=== PATIENT | male | born 1995 ===

== ENCOUNTER → 2022-01-26 09:45 | Outpatient (BNVA) | payer MEDICARE, SELFPAY | PROVIDERS: PCP Internal Medicine; Visit Provider Dietitian, Registered | DX: E66.01 Morbid (severe) obesity due to excess calories (principal); Z68.41 Body mass index [BMI] 40.0-44.9, adult | CPT/HCPCS: 97802 ==

== ENCOUNTER → 2022-04-14 09:13 | Outpatient (BNVA) | payer MEDICARE, SELFPAY | PROVIDERS: PCP Internal Medicine; Visit Provider Dietitian, Registered | DX: E66.01 Morbid (severe) obesity due to excess calories (principal); Z68.39 Body mass index [BMI] 39.0-39.9, adult; Z71.3 Dietary counseling and surveillance | CPT/HCPCS: 97803 ==

== ENCOUNTER → 2022-08-02 12:48 | Outpatient (BNVA) | payer MEDICARE, SELFPAY | PROVIDERS: PCP Internal Medicine; Visit Provider Dietitian, Registered | DX: E66.01 Morbid (severe) obesity due to excess calories (principal); Z68.41 Body mass index [BMI] 40.0-44.9, adult | CPT/HCPCS: 97803 ==

== ENCOUNTER 2024-05-20 11:56 | Outpatient (AMB) | payer OTHER, SELFPAY ==
--- NOTE | 2024-05-20 12:08 | A.OFFPC_ITS ---
Vital Signs 05/20/24 12:32 Height 5 ft 4 in Weight 174 lb 6 oz BMI 29.9 BP 118/78 Blood Pressure Location Lt brachial Position Sitting Respiration 17 Pulse 88 Pulse Source Pulse Oximeter Temp 98.2 F Temp Source Oral Pulse Oximetry (%) 98 Oxygen Delivery Method Room Air Intake Visit Reasons: Est Care/requesting PE/Provider out 03/28/24 Intake Note: Pt is here today as a new pt establishing care. Allergies ursodiol Adverse Reaction (Severe, Uncoded 05/20/24 13:02) Confusion Medication List - Last Reconciled 05/20/24 by Sheridan Patel MD acetaminophen (Pain Relief Extra Strength (acetaminophen)) mg PO escitalopram oxalate 10 mg PO DAILY fluticasone propionate 110 mcg/actuation inhalation lamotrigine 100 mg PO BID lamotrigine 200 mg PO BID loratadine 10 mg PO DAILY pantoprazole 40 mg PO DAILY topiramate 50 mg PO DAILY topiramate 100 mg PO BID Tobacco use date assessed: 05/20/24 Dental Screening Dental Screen Date: 05/20/24 Did you have a dental visit in the last 12 months?: No Did you have a dental problem in the last 6 months where you did not have access to dental care?: No Was dental information given to patient?: Patient has dentist HPI Est Care/requesting PE/Provider out 03/28/24 HPI Details 29-year-old male with history of morbid obesity, status post gastric sleeve surgery, has depression anxiety, seizure disorder currently on topiramate and lamotrigine, and environmental and seasonal allergies, here today for his physical exam. Patient states that he has been having some alteration in his taste ever since he had his sleeve gastrectomy done . Otherwise has been feeling well, with no other complaints. He is currently being followed by Román chinchilla for his depression and anxiety, and sees Dr. Dinesh Farrell for his seizure disorder. [facility] Medical History (Updated 05/20/24 @ 13:07 by Sheridan Patel MD) Dysgeusia Environmental and seasonal allergies Depression with anxiety Seizure disorder Mental health disorder Substance abuse Surgical History (Updated 05/20/24 @ 13:08 by Sheridan Patel MD) H/O gastric sleeve Family History Mother Mental health disorder Father Mental health disorder Social History Housing: House Patient Tobacco Use Status: Never used Tobacco e-Cigarette/Vaping Use: Never Used service: No Current occupational status: unemployed Cognitive needs: No Hearing needs: No Vision needs: Yes Questionnaire PHQ-9 Over the last 2 weeks, how often have you been bothered by any of the following problems? 1. Little interest or pleasure in doing things: more than half the days 2. Feeling down, depressed, or hopeless: not at all 3. Trouble falling or staying asleep, or sleeping too much: more than half the days 4. Feeling tired or having little energy: more than half the days 5. Poor appetite or overeating: more than half the days 6. Feeling bad about yourself - or that you are a failure or have let yourself or your family down: not at all 7. Trouble concentrating on things, such as reading the newspaper or watching television: several days 8. Moving or speaking so slowly that other people could have noticed. Or the opposite - being so fidgety or restless that you have been moving around a lot more than usual: not at all 9. Thoughts that you would be better off or of hurting yourself in some way: not at all Total score: 9 Depression Screening Interpretation: Positive (sees Román Bucio in [place]) Depression Screening Follow-up: Existing condition, In treatment and Community Mental Health Worker F/U Depression Screening Done: Yes 76438 - PHQ-9 Billing: Yes Source: Developed by Drs. Lester Cullen, Julianne Tarango, Lázaro Benedict and colleagues, with an educational delonte from [employer]. Thrive Questionnaire Date Thrive assessed: 05/20/24 I am a: Patient What is your living situation today?: I have a steady place to live Within the past 12 months, did the food you bought not last and you didn't have the money to get more?: Sometimes True Within the past 12 months, did you worry whether your food would run out before you got money to buy more?: Sometimes True Do you have trouble paying for medicines?: I choose not to answer this question Do you have trouble getting transportation to medical appointments?: I choose not to answer this question Do you have trouble paying your heating and electricity bill?: No Do you have trouble taking care of your child, family member or friend?: I choose not to answer this question Do you have trouble with day-to-day activities such as bathing, preparing meals, shopping, managing finances, etc.?: I choose not to answer this question Are you currently unemployed and looking for a job?: I choose not to answer this question Are you interested in more education?: I choose not to answer this question Please select the resources that you would like help with: None Currently or been in a relationship where the following occur: I choose not to answer THRIVE Score: 2 AUDIT C Alcohol Use Questionnaire (AUDIT-C) 1. How often do you have a drink containing alcohol?: Never 3. How often do you have six or more drinks on one occasion?: Never Total Score: 0 Score Reviewed/Action Taken: Yes MARIA ISABEL-7 AMB Questionnaire MARIA ISABEL-7 Date MARIA ISABEL - 7 assessed: 05/20/24 Feeling nervous, anxious, or on edge: 1 = Several days Not being able to stop or control worryin = Several days Worrying too much about different things: 1 = Several days Trouble relaxin = More than half the days Being so restless that it is hard to sit still: 1 = Several days Becoming easily annoyed or irritable: 3 = Nearly every day Feeling afraid as if something awful might happen: 2 = More than half the days Total MARIA ISABEL-7 score (0-4 normal; 5-9 mild; 10-14 moderate; 15-21 severe): 11 Source: Developed by Drs. Lester Cullen, Julianne Tarango, Lázaro Benedict and colleagues, with an educational delonte from [employer]. MARIA ISABEL-7 Assessment Billing MARIA ISABEL-7 Assessment Tool: MARIA ISABEL-7 Assessment [id number] Review of Systems Const Denies body aches, Denies fatigue, Denies fever(s) and Denies headache(s) Eyes Details: sees eye doctor at [facility] Denies change in vision ENT Details: gets dental prophylaxis every 6 months Denies dizziness, Denies headache(s), Denies nasal congestion, Denies nasal discharge and Denies sore throat Card Denies chest pain, Denies lightheadedness, Denies palpitations and Denies dyspnea Resp Denies chest congestion, Denies cough, Denies dyspnea and Denies wheezing GI Denies abdominal pain, Denies change in bowel habits and Denies heartburn Denies hematuria, Denies difficulty urinating, Denies dysuria, Denies urinary frequency and Denies urinary urgency Musc Reports no additional complaints Skin/Breast Denies lesions and Denies rash Neuro Denies dizziness and Denies headache(s) Psych Reports as per HPI Endo Denies fatigue, Denies polydipsia, Denies polyuria and Denies palpitations Chance/Lymph Denies easy bruising Aller/Immun Denies seasonal rhinorrhea and Denies wheezing Physical exam (Primary Care) Vital Signs: Last Vital Signs Temp 98.2 F 05/20/24 12:32 Pulse 88 05/20/24 12:32 Resp 17 05/20/24 12:32 BP 118/78 05/20/24 12:32 Pulse Ox 98 05/20/24 12:32 Oxygen Delivery Method Room Air 05/20/24 12:32 BMI result Body Mass Index 29.9 Tobacco/Smoking Status: Tobacco use Status Tobacco use date assessed 05/20/24 05/20/24 12:10 Patient Tobacco Use Status Never used Tobacco 05/20/24 12:42 e-Cigarette/Vaping Use Never Used 05/20/24 12:42 PHQ-9: PHQ-9 Score PHQ-9: Total score 9 05/20/24 12:51 Depression Screening Interpretation: Positive (alfredo Bucio in [place]) Depression Screening Follow-up: Existing condition, In treatment and Community Mental Health Worker F/U Thrive Assessment: Date of Thrive Assessment Date Thrive assessed 05/20/24 05/20/24 12:42 Currently or been in a relationship where the following occur: I choose not to answer Const General: no acute distress and alert Nutritional Appearance: overweight Orientation/consciousness: patient oriented x3 HENMT Head: Yes normocephalic Ears: external ears normal, TM's normal bilaterally and EAC's normal General nose exam: Normal external nose present and No nasal discharge present Face and sinus: Yes face symmetric Mouth: Normal oral and palatal mucosa present, tongue normal, oropharynx normal and moist mucous membranes Eyes General: appearance normal, both eyes and all related structures Eyelids: Yes eyelids normal Conjunctivae: conjunctivae normal Sclerae: sclerae normal Pupils: Equal, round and reactive pupils present EOM: EOMs intact bilaterally Neck Neck: Yes full ROM, Yes no lymphadenopathy and Yes supple Thyroid: Thyroid normal Chest Chest palpation & inspection: normal inspection of the chest Resp Effort & Inspection: normal respiratory effort and able to speak in complete sentences Auscultation: clear to auscultation bilaterally Cardio Rate: regular rate Rhythm: regular rhythm Heart sounds: S1 normal heart sound present and S2 normal heart sound present GI Palpation (GI): Soft to palpation, nontender, no guarding and no masses Auscultation: normal bowel sounds General: Yes no CVA tenderness Male General Exam: No hernia Scrotum: no hydroceles and no inguinal hernias Testes: no testicular mass Back/Spine/Pelvis Back: no CVA tenderness and No back tenderness Skin General skin exam: no rashes or lesions noted Neuro General: patient oriented x3, gait normal, moves all extremities, Normal light touch and pain sensation, no focal motor deficits and CN's II-XI intact bilaterally Cranial nerves: Yes Equal, round and reactive pupils present Cognition (Neuro): normal cognition Gait exam (Neuro): Normal gait present Motor exam (neuro): 5/5 motor strength present throughout Extrem General: Yes normal to inspection, Yes full ROM, Yes no joint enlargement, Yes no pedal edema and Yes normal gait Psych Appearance: grossly normal and well kempt Mental Status: mental status grossly normal Speech and movement: Normal speech and movement present Affect: normal affect Attitude: cooperative Thought process: Normal thought process present Thought content: Normal thought content present Coding Level of Care Code New Pt Prev Care 18-39yr([id number] Diagnoses Seizure disorder G40.909 Depression with anxiety F41.8 Environmental and seasonal allergies J30.89 Dysgeusia R43.2 H/O gastric sleeve Z90.3 Annual visit for general adult medical examination with abnormal findings Z00.01 Additional Codes MARIA ISABEL-7 Assessment Billing - MARIA ISABEL-7 Assessment Tool: MARIA ISABEL-7 Assessment [id number] ([id number]) PHQ-9 - 22262 - PHQ-9 Billing: Yes ([id number]) Assessment & Plan Assessment & Plan (1) Seizure disorder: Comment: dx at age 10 y/o, sees Dr Dinesh Farrell in [place] , on Topiramate and Lmotrigine, last attack >10 years Code(s): G40.909 - Epilepsy, unspecified, not intractable, without status epilepticus Category: Medical Plan: Controlled on lamotrigine and topiramate, followed by Dr. Dinesh Farrell, his neurologist in [place] (2) Depression with anxiety: Comment: alfredo Bucio MD Code(s): F41.8 - Other specified anxiety disorders Category: Medical Plan: Followed by Dr Román Bucio, currently on escitalopram mg daily (3) Environmental and seasonal allergies: Code(s): J30.89 - Other allergic rhinitis Category: Medical Plan: Takes loratadine as needed (4) Dysgeusia: Code(s): R43.2 - Parageusia Category: Medical Plan: Explained to patient that this is a common side effect after sleeve gastrectomy, (5) H/O gastric sleeve: Comment: Dr Gonzalez 12/2023, Code(s): Z90.3 - Acquired absence of stomach [part of] Category: Surgical Plan: Will check vitamin B12, vitamin-D and folic acid level and vitamin B6 (6) Annual visit for general adult medical examination with abnormal findings: Code(s): Z00.01 - Encounter for general adult medical examination with abnormal findings Plan: Will check appropriate labs. Up-to-date with his dental visit every 6 months and regular eye exams, at least every 2 years. Take adequate calcium in diet and vitamin-D 3 at 2000 IU per cap once a day, in addition to weight-bearing exercises to help maintain good muscle tone and weight control. Instructed to do self-testicular exam check for any mass. Advised to get yearly flu vaccine, get his COVID booster and is due for a tetanus booster as well this year, does not want to get 1 at present time Orders: Orders Complete Blood Count Auto Diff 05/20/24 F41.8 - Other specified anxiety disorders, G40.909 - Epilepsy, unspecified, not intractable, without status epilepticus, J30.89 - Other allergic rhinitis, R43.2 - Parageusia, Z00.01 - Encounter for general adult medical examination with abnormal findings, Z90.3 - Acquired absence of stomach [part of] Comprehensive [place]. Panel Fast 05/20/24 F41.8 - Other specified anxiety disorders, G40.909 - Epilepsy, unspecified, not intractable, without status epilepticus, J30.89 - Other allergic rhinitis, R43.2 - Parageusia, Z00.01 - Encounter for general adult medical examination with abnormal findings, Z90.3 - Acquired absence of stomach [part of] Lipid Panel 05/20/24 F41.8 - Other specified anxiety disorders, G40.909 - Epilepsy, unspecified, not intractable, without status epilepticus, J30.89 - Other allergic rhinitis, R43.2 - Parageusia, Z00.01 - Encounter for general adult medical examination with abnormal findings, Z90.3 - Acquired absence of stomach [part of] Vitamin B12 and Folate 05/20/24 F41.8 - Other specified anxiety disorders, G40.909 - Epilepsy, unspecified, not intractable, without status epilepticus, J30.89 - Other allergic rhinitis, R43.2 - Parageusia, Z00.01 - Encounter for general adult medical examination with abnormal findings, Z90.3 - Acquired absence of stomach [part of] Vitamin D 25-OH Total 05/20/24 F41.8 - Other specified anxiety disorders, G40.909 - Epilepsy, unspecified, not intractable, without status epilepticus, J30.89 - Other allergic rhinitis, R43.2 - Parageusia, Z00.01 - Encounter for general adult medical examination with abnormal findings, Z90.3 - Acquired absence of stomach [part of] Vitamin B6 05/20/24 F41.8 - Other specified anxiety disorders, G40.909 - Epilepsy, unspecified, not intractable, without status epilepticus, J30.89 - Other allergic rhinitis, R43.2 - Parageusia, Z00.01 - Encounter for general adult medical examination with abnormal findings, Z90.3 - Acquired absence of stomach [part of] TSH reflex Free T4 05/20/24 F41.8 - Other specified anxiety disorders, G40.909 - Epilepsy, unspecified, not intractable, without status epilepticus, J30.89 - Other allergic rhinitis, R43.2 - Parageusia, Z00.01 - Encounter for general adult medical examination with abnormal findings, Z90.3 - Acquired absence of stomach [part of]
[2024-05-20 12:32] VITALS: BP 118/78; PULSE 88; RESP 17; TEMP 36.8; O2SAT 98; BMI 29.9
--- OUTSIDE RECORDS SUMMARY | 2024-05-20 15:05 | XMS_ITS | Clinical Summary ---
Author Organization 175 [facility] Address [address] [place] [address] Phone Care Team Providers Care Industrial Mechanic Name Role Phone Vikram Rivera MD Primary Care Provider Allergies No known active allergies Medications fluticasone furoate (Arnuity Ellipta) 100 mcg/actuation blister with device inhaler INHALE ONE PUFF BY MOUTH EVERY DAY - RINSE MOUTH WITH WATER AND EXPECTORATE AFTER EACH DOSE TO PREVENT ORAL/ESOPHAGEAL CANDIDIASIS OR FUNGAL INFECTION. (BULK) 08/17/19 24 Active cholecalcifero l (VITAMIN D-3) 50 mcg (2,000 unit) tablet Take 1 Tablet by mouth daily. 11/27/19 24 Active cholecalcifero l (VITAMIN D-3) 1,250 mcg (50,000 unit) capsule TAKE 1 CAPSULE BY MOUTH ONE TIME PER WEEK 09/10/19 24 Active escitalopram (LEXAPRO) 20 mg tablet 01/26/20 23 Active fluticasone HFA (FLOVENT HFA) 110 mcg/actuation inhaler INHALE 2 PUFFS BY MOUTH INTO THE LUNGS TWO TIMES A DAY (BULK) 08/20/19 24 Active hydrOXYzine HCL (ATARAX) 50 mg tablet 01/26/20 23 Active lamoTRIgine (LaMICtal) 200 mg tablet Take 1 tablet by mouth 2 Times Daily. 04/22/19 22 Active lamoTRIgine (LaMICtal XR) 300 mg tablet extended release 24hr 24 hr tablet Take 300 mg by mouth 2 times daily. 10/07/19 21 Active loratadine (CLARITIN) 10 mg tablet TAKE ONE TABLET BY MOUTH EVERY DAY ^1R1 12/17/19 24 Active sertraline (ZOLOFT) 100 mg tablet Take 100 mg by mouth 2 times daily. Active topiramate (TOPAMAX) 100 mg tablet TAKE 1 TABLET EVERY MORNING AND 1.5 TABLET (150MG) EVERY EVENING 02/21/20 19 Active ursodioL (ACTIGALL) 300 mg capsule Take 2 Capsules by mouth daily for 180 days. 12/29/19 24 025 Active inhalat.spacin g dev,large mask (Procare Spacer With Adult Mask) spacer Use with albuterol inhaler 02/20/20 18 Active wheat dextrin 3 gram/3.8 gram powder Take 4 g by mouth daily. 12/29/19 24 Active albuterol HFA (PROAIR HFA ; PROVENTIL HFA ; VENTOLIN HFA) 90 mcg/actuation inhaler INHALE 2 PUFFS BY MOUTH INTO THE LUNGS EVERY 4 HOURS NEEDED FOR COUGH OR WHEEZING (BULK) 8.5 g 1 04/28/19 25 Active albuterol HFA (PROAIR HFA ; PROVENTIL HFA ; VENTOLIN HFA) 90 mcg/actuation inhaler INHALE 2 PUFFS BY MOUTH INTO THE LUNGS EVERY 4 HOURS NEEDED FOR COUGH OR WHEEZING (BULK) 8.5 g 1 02/27/20 24 025 Discontinued Active Problems Problem Noted Date Diagnosed Date Bariatric surgery status 04/15/2024 Class 1 obesity due to exces s calories with serious comorbidity and body mass index (BMI) of 30.0 to 30.9 in adult 04/15/2024 Class 3 severe obesity with body mass index (BMI) of 40.0 to 44.9 in adult 01/01/2024 TIERNEY (obstructive sleep apnea) 09/10/2015 Depression 07/28/2013 Epilepsy 12/24/2012 Overview (01/01/2024): Started age 10, states after his father , seizures started ? Emotional Patient states he is in the process of having the surgery for the seizures to remove part of the brain that causes the seizures . Insomnia 12/24/2012 Migraine 12/24/2012 Vitamin D deficiency 12/24/2012 Encounters Date Type Department Care Team Description 04/28/2024 1:15 PM EST Office Visit Bariatric Surgery - [place] 175 [facility] [address] [place] [address] Nenita Danielle PA Intestinal malabsorption following gastrectomy (Primary Dx); Class 1 obesity due to excess calories with serious comorbidity and body mass index (BMI) of 30.0 to 30.9 in adult; Bariatric surgery status 04/15/2024 3:15 PM EST Office Visit Bariatric Surgery - [place] [address] [phone] Nenita Danielle PA Class 1 obesity due to excess calories with serious comorbidity and body mass index (BMI) of 30.0 to 30.9 in adult (Primary Dx); Bariatric surgery status from Last 3 Months Immunizations Name Administration Dates Next Due Hepatitis B (Hocimhr-H-Ggkia , Recombivax HB-Adult) 19yo and older 10/27/2021 Influenza Quadravalent, MDCK , 0.5ml, preservative free (Flucelvax) 6mo and older 11/23/2022 Influenza trivalent, 0.5mL, preservative free (Fluarix; FluLaval; Fluzone) ages 6mo and older (Afluria) 3 years and older 12/15/2018,05/04/2016 Tdap Tetanus diptheria acell ular pertussis (Boostrix; Adacel) 7yo and older 10/30/2013 Medical History Medical History Date Comments Epilepsy ([facility]/HCC) 12/24/2012 DX:Epilepsy ( [facility]); COMMENT: Started age 10, states after his father , seizures started ? Emotional Major depression 12/24/2012 DX:Major depres bryan Vitamin D deficiency 12/24/2012 DX:Vitamin D deficiency Trouble in sleeping 12/24/2012 DX:Trouble i n sleeping Migraine 12/24/2012 DX:Migraine Family History Medical History Relation Name Comments Other: epilepsy Aunt mother Diabetes Brother asthma Alcohol abuse Father in 30 s, cause unknown Diabetes Mother kidney stones, migraines Other: ca cervical Mother spread to ovaries, not sure Other: ca cervical Mother's side 1 Aunt Prostate cancer Mother's side 2 Uncle Relation Name Status Comments Aunt Brother Father Mother Mother's side 1 Mother's side 2 Social History Tobacco Use Types Packs/Day Years Used Date Smoking Tobacco: Never Smokeless Tobacco: Never Tobacco Cessation:Counseling Given: Not Answered Alcohol Use Standard Drinks/Week Comments Never 0 (1 standard drink = 0.6 oz pur e alcohol) Sex and Gender Information Value Date Recorded Sex Assigned at Not on file Legal Sex Male 3:58 AM EST Gender Identity Not on file Sexual Orientation Not on file Obstetrics History Last Filed Vital Signs Vital Sign Reading Time Taken Comments Blood Pressure 116/70 04/28/2024 1:11 PM EST Pulse 101 04/28/2024 1:11 PM EST Temperature - - Respiratory Rate - - Oxygen Saturation - - Inhaled Oxygen Concentration - - Weight 83.4 kg (183 lb 12.8 oz) 04/28/2024 1:11 PM EST Height 165.1 cm (5' 5 ) 04/28/2024 1:11 PM EST Body Mass Index 30.59 04/28/2024 1:11 PM EST Plan of Treatment Upcoming Encounters Date Type Department Care Team (Late st Contact Info) Description 05/21/2024 9:00 AM EST Telemedicine Bariatric Surgery [facility] [address] [phone] [address] [address] 06/10/2024 11:45 AM EDT Office Visit Bariatric Surgery [facility] [address] [phone] Nenita Danielle PA [address] [address] 06/23/2024 3:45 PM EDT Office Visit Adult Medicine [address] [phone] Vikram Rivera MD [address] [place] [address] 11/19/2024 3:45 PM EDT Office Visit Pulmonolgy - [place] 175 [facility] [address] [place] [address] Bob Ravi MD 175 [facility] [address] [place] [address] Health Maintenance Due Date Last Done Comments Pneumococcal Vaccine: Pediatrics (0 to 5 Years) and At-Risk Patients (6 to 64 Years) (1 of 2 - PCV) 01/10/2012 Hepatitis B Vaccines (2 of 3 - 19+ 3-dose series) 11/24/2021 10/27/2021 Depression Screening 02/25/2022 HIV Screening 02/25/2022 Hepatitis C Screening 02/25/2022 Medicare Annual Wellness Visit 02/25/2022 Social Influencers of Health Screening 02/25/2022 DTaP,Tdap,and Td Vaccines (2 - Td or Tdap) 10/31/2023 10/30/2013 COVID-19 Vaccine ( season) 2023 03/01/2021, 07/31/2020, 07/10/2020 Influenza Vaccine (#1) 2023 , 12/04/2019, 12/15/2018, Additional history exists Cholesterol Screening (Lipid Panel) 11/26/2028 11/27/2023, 11/27/2023 HIB Vaccines Aged Out No longer eligi ble based on patient's age to complete this topic HPV Vaccines Aged Out No longer eligi ble based on patient's age to complete this topic Hepatitis A Vaccines Aged Out No long er eligible based on patient's age to complete this topic IPV Vaccines Aged Out No longer eligi ble based on patient's age to complete this topic MMR Vaccines Aged Out No longer eligi ble based on patient's age to complete this topic Meningococcal ACWY Vaccine Aged Out N o longer eligible based on patient's age to complete this topic Meningococcal B Vacine Aged Out No lo nger eligible based on patient's age to complete this topic RSV Immunization Patients Under 20 months Aged Out No longer eligible based on patient's age to complete this topic Varicella Vaccines Aged Out No longer eligible based on patient's age to complete this topic Procedures Procedure Name Priority Date/Time Associated Diagnosis Comments VITAMIN B1 Routine 04/15/2024 3:42 PM EST Class 1 obesity due to excess calories with serious comorbidity and body mass index (BMI) of 30.0 to 30.9 in adult VITAMIN B12 Routine 04/15/2024 3:42 PM EST Class 1 obesity due to excess calories with serious comorbidity and body mass index (BMI) of 30.0 to 30.9 in adult VITAMIN B6 Routine 04/15/2024 3:42 PM EST Class 1 obesity due to excess calories with serious comorbidity and body mass index (BMI) of 30.0 to 30.9 in adult VITAMIN D 25 HYDROXY Routine 04/15/2024 3:42 PM EST Class 1 obesity due to excess calories with serious comorbidity and body mass index (BMI) of 30.0 to 30.9 in adult ZINC Routine 04/15/2024 3:42 PM EST Class 1 obesity due to excess calories with serious comorbidity and body mass index (BMI) of 30.0 to 30.9 in adult SELENIUM SERUM Routine 04/15/2024 3:42 PM EST Class 1 obesity due to excess calories with serious comorbidity and body mass index (BMI) of 30.0 to 30.9 in adult IRON AND TIBC Routine 04/15/2024 3:42 PM EST Class 1 obesity due to excess calories with serious comorbidity and body mass index (BMI) of 30.0 to 30.9 in adult FOLATE Routine 04/15/2024 3:42 PM EST Class 1 obesity due to excess calories with serious comorbidity and body mass index (BMI) of 30.0 to 30.9 in adult COMPREHENSIVE METABOLIC PANEL Routine 04/15/2024 3:42 PM EST Class 1 obesity due to excess calories with serious comorbidity and body mass index (BMI) of 30.0 to 30.9 in adult LIPID PANEL Routine 11/27/2023 from Last 3 Months or Most Recently Relevant to Health Maintenance Results * Iron and TIBC (04/15/2024 3:42 PM EST) Iron 111 50 - 160 mcg/dL LAB CHEMISTRY METHOD 04/15/2024 7:38 PM EST [facility] TIBC 288 250 - 450 mcg/dL LAB CHEMISTRY METHOD 04/15/2024 7:38 PM EST [facility] Iron Saturation 39 20 - 50 % LAB CHEMISTRY METHOD 04/15/2024 7:38 PM EST [facility] Blood Venous blood specimen / Unknown Venipuncture / Unknown 04/15/2024 3:42 PM EST 04/15/2024 3:42 PM EST us Nenita TIAN LAB BLOOD ORDERABLES Final R esult [facility] [address] [place] [address], [place] [phone] * (ABNORMAL) Zinc (04/15/2024 3:42 PM EST) Zinc 142(H) 60 - 130 ug/dL 04/18/2024 12:14 PM EST [facility] Comment: Elevated results may be due to sample collected in a non-certified trace element-free tube. This test was developed and the performance characteristics determined by [facility]. It has not been cleared or approved by the FDA. The laboratory is regulated under CLIA as qualified to perform high-complexity testing. This test is used for patient testing purposes. It should not be regarded as investigational or for research. Test performed at [facility], [address] , [place], [place] ??[address] ? [phone] Lucille Oliveros MD, PhD - Plumbing Designer Blood Venous blood specimen / Unknown Venipuncture / Unknown 04/15/2024 3:42 PM EST 04/15/2024 3:42 PM EST us Nenita TIAN LAB BLOOD ORDERABLES Final R esult Performing Organization Address [facility]/ZIP Co de Phone Number [facility] [address] [place] [address] * Selenium serum (04/15/2024 3:42 PM EST) [facility] Selenium 125 63 - 160 mcg/L 04/25/2024 4:40 AM EST [facility] Comment: (Note) This test was developed and its analytical performance characteristics have been determined by [facility]. It has not been cleared or approved by the FDA. This assay has been validated pursuant to the CLIA regulations and is used for clinical purposes. [facility] [address] [facility] [address] Ramana Vicente MD, PhD Test Performed at: [facility] [address] [address], [address] [place], [place] ??[phone] ? Rohit Vicente MD, PhD Blood Venous blood specimen / Unknown Venipuncture / Unknown 04/15/2024 3:42 PM EST 04/15/2024 3:42 PM EST Nenita TIAN LAB BLOOD ORDERABLES Final R esult Performing Organization Address [facility] de Phone Number [facility] [address] [place] [address] * Vitamin D 25 hydroxy (04/15/2024 3:42 PM EST) [facility] Vit D, 25-Hydroxy 38.4 30.0 - 80.0 ng/mL LAB CHEMISTRY METHOD 04/15/2024 7:17 PM EST [facility] Blood Venous blood specimen / Unknown Venipuncture / Unknown 04/15/2024 3:42 PM EST 04/15/2024 3:42 PM EST Nenita TIAN LAB BLOOD ORDERABLES Final R esult Performing Organization Address City/[facility]/ZIP Co de Phone Number [facility] [address] [place] [address], * Vitamin B1 (04/15/2024 3:42 PM EST) Vitamin B1 Whole Blood 93 38 - 122 ug/L 04/21/2024 12:25 PM EST [facility] Comment: This test was developed and the performance characteristics determined by [facility]. It has not been cleared or approved by the FDA. The laboratory is regulated under CLIA as qualified to perform high-complexity testing. This test is used for patient testing purposes. It should not be regarded as investigational or for research. Test performed at [facility], [address] [place], [place] ??[address] ? [phone] Lucille Oliveros MD, PhD - Plumbing Designer Blood Venous blood specimen / Unknown Venipuncture / Unknown 04/15/2024 3:42 PM EST 04/15/2024 3:42 PM EST Nenita TIAN LAB BLOOD ORDERABLES Final R esult [facility] [address] [place] [address] * (ABNORMAL) Vitamin B6 (04/15/2024 3:42 PM EST) Vitamin B6 (Pyridoxine) Level 139(H) 5 - 50 ug/L 04/21/2024 12:54 PM EST [facility] Comment: This test was developed and the performance characteristics determined by [facility]. It has not been cleared or approved by the FDA. The laboratory is regulated under CLIA as qualified to perform high-complexity testing. This test is used for patient testing purposes. It should not be regarded as investigational or for research. Test performed at [facility], [address] [place], [place] ??[address] ? [phone] Lucille Oliveros MD, PhD - Plumbing Designer Blood Venous blood specimen / Unknown Venipuncture / Unknown 04/15/2024 3:42 PM EST 04/15/2024 3:42 PM EST us Nenita TIAN LAB BLOOD ORDERABLES Final R esult [place] [address] * Folate (04/15/2024 3:42 PM EST) Pathologist [facility] Folate 15.7 2.8 - 17.0 ng/ml LAB CHEMISTRY METHOD 04/15/2024 7:38 PM EST [facility] Blood Venous blood specimen / Unknown Venipuncture / Unknown 04/15/2024 3:42 PM EST 04/15/2024 3:42 PM EST us Nenita TIAN LAB BLOOD ORDERABLES Final R esult Performing Organization Address City/[facility]/ZIP Co de Phone Number [facility] [address] [place] [address], [place] [phone] * Vitamin B12 (04/15/2024 3:42 PM EST) [facility] Vitamin B-12 792 250 - 900 pcg/mL LAB CHEMISTRY METHOD 04/15/2024 7:38 PM EST [facility] Blood Venous blood specimen / Unknown Venipuncture / Unknown 04/15/2024 3:42 PM EST 04/15/2024 3:42 PM EST Nenita TIAN LAB BLOOD ORDERABLES Final R esult Performing Organization Address City/[facility]/ZIP Co de Phone Number [facility] [address] [place] [address], [place] [phone] * Comprehensive metabolic panel (04/15/2024 3:42 PM EST) Pathologist [facility] Sodium 141 133 - 145 mmol/L LAB CHEMISTRY METHOD 04/15/2024 7:38 PM EST [facility] Potassium 3.9 3.5 - 5.5 mmol/L LAB CHEMISTRY METHOD 04/15/2024 7:38 PM [facility] Chloride 110 96 - 110 mmol/L LAB CHEMISTRY METHOD 04/15/2024 7:38 PM [facility] CO2 27 21 - 32 mmol/L LAB CHEMISTRY METHOD 04/15/2024 7:38 PM [facility] Anion Gap 4 3 - 11 LAB CHEMISTRY METHOD 04/15/2024 7:38 PM [facility] Glucose 87 70 - 100 mg/dL LAB CHEMISTRY METHOD 04/15/2024 7:38 PM [facility] BUN 9 5 - 25 mg/dL LAB CHEMISTRY METHOD 04/15/2024 7:38 PM [facility] Creatinine 0.95 0.70 - 1.30 mg/dL LAB CHEMISTRY METHOD 04/15/2024 7:38 PM [facility] eGFR 110 >=60 mL/min/1. 73m2 LAB CHEMISTRY METHOD 04/15/2024 7:38 PM [facility] Comment:Calculation based on the??Chronic Kidney Disease Epidemiology Collaboration (CKD-EPI) equation refit??without adjustment for race. BUN/Creatinine Ratio 9.5 LAB CHEMISTRY METHOD 04/15/2024 7:38 PM [facility] Calcium 9.2 8.5 - 10.5 mg/dL LAB CHEMISTRY METHOD 04/15/2024 7:38 PM [facility] AST (SGOT) 21 10 - 42 unit/L LAB CHEMISTRY METHOD 04/15/2024 7:38 PM [facility] ALT (SGPT) 38 10 - 60 unit/L LAB CHEMISTRY METHOD 04/15/2024 7:38 PM [facility] Alkaline Phosphatase 80 42 - 121 unit/L LAB CHEMISTRY METHOD 04/15/2024 7:38 PM [facility] Total Protein 7.7 6.0 - 8.0 g/dL LAB CHEMISTRY METHOD 04/15/2024 7:38 PM EST [facility] Albumin 4.5 3.2 - 5.0 g/dL LAB CHEMISTRY METHOD 04/15/2024 7:38 PM EST [facility] Total Bilirubin 0.6 0.0 - 1.4 mg/dL LAB CHEMISTRY METHOD 04/15/2024 7:38 PM EST [facility] Blood Venous blood specimen / Unknown Venipuncture / Unknown 04/15/2024 3:42 PM EST 04/15/2024 3:42 PM EST Nenita TIAN LAB BLOOD ORDERABLES Final R esult [facility] [address] [place] [address], * (ABNORMAL) Lipid panel (11/27/2023) LDL/HDL Ratio 6(A) 0 - 4 Triglycerides 260(A) 0 - 150 mg/dL Cholesterol 204(A) 0 - 200 mg/dL HDL 34(A) >=40 mg/dL LDL Cholesterol 118(A) 0 - 100 mg/dL Blood Venous blood specimen / Unknown Historical Provider LAB BLOOD ORDERABLES Becca l Result from Last 3 Months or Most Recently Relevant to Health Maintenance Insurance [facility] MEDICARE Member Subscriber Plan / Payer (Ef fective 2017-Present) Name:Daniel Zurita Relation to Subscriber:Self Name:Daniel Zurita Payer ID:[id number] Group ID:[id number] Type:Not on file Address: [address] [place] [id number] Care Teams Industrial Mechanic Relationship Specialty Start Date End Date Vikram Rivera MD [address] [place] [id number] PCP - General Internal Medicine 02/07/24
--- OUTSIDE RECORDS SUMMARY | 2024-05-20 15:05 | XMS_ITS | Encounter Summary ---
Author Organization [facility] Address [address] [place] [address] Care Team Providers Care Forest Technician Name Role Phone Vikram Rivera MD Primary Care Provider [phone] Reason for Visit * Reason Comments Follow-up 2 week Encounter Details Date Type Department Care Team (Latest Contact Info) Description 04/28/2024 1:15 PM EST Office Visit Bariatric Surgery - [place] [address] [phone] Nenita Danielle, JAYLAN [address] [address] Intestinal malabsorption following gastrectomy (Primary Dx); Class 1 obesity due to excess calories with serious comorbidity and body mass index (BMI) of 30.0 to 30.9 in adult; Bariatric surgery status Social History Tobacco Use Types Packs/Day Years Used Date Smoking Tobacco: Never Smokeless Tobacco: Never Alcohol Use Standard Drinks/Week Comments Never 0 (1 standard drink = 0.6 oz pur e alcohol) Sex and Gender Information Value Date Recorded Sex Assigned at Not on file Legal Sex Male 3:58 AM EST Gender Identity Not on file Sexual Orientation Not on file documented as of this encounter Last Filed Vital Signs Vital Sign Reading [...] Mass Index 30.59 04/28/2024 1:11 PM EST documented in this encounter Progress Notes * JAYLAN Piña - 04/28/2024 1:15 PM EST Daniel Zurita is a 29 y.o. year old male who presents for follow up regarding obesity. HPI: Daniel Zurita presents for surgical follow up s/p sleeve gast[facility]. He last followed up in the office on 04/15/2024 Since that time he has lost 2 additional pounds 9 previously was hospitalized at [facility] Initially thought that he was experiencing seizure activity however believes that he was actually allergic to the Actigall Was also experiencing vomiting and excessive hiccuping and became dehydrated We do not have access to the [facility] records currently however patient states he has follow-up with cardiology in April 2024 Today, he states he is feeling better He had labs checked after his last appointment which revealed high zinc and B6 He does take a daily bariatric multivitamin in addition to a joint supplement He is not sure what the joint supplement has and it however states it has a lot of protein He is eating and drinking without nausea or vomiting No acid reflux No abdominal pain No issues urinating or moving his bowels Denies fever, chills, chest pain, shortness of breath Body mass index is 30.59 kg/m??. ROS: GENERAL: No malaise, significant unintentional weight loss, fever, chills or night sweats. RESPIRATORY: No cough, wheezing or shortness of breath CARDIOVASCULAR: No chest pain, leg swelling or palpitations. GI: No abdominal discomfort, nausea, vomiting, or change in bowel habits. : No dysuria, frequency or incontinence. SKIN: No lesions, rash or itching. HEMATOLOGY/LYMPHOLOGY No prolonged bleeding, easy bruisability or swollen nodes. MUSCULOSKELETAL: No abnormalities. NEURO: No abnormalities. The remainder of the review of systems is noncontributory PAST MEDICAL HISTORY: Patient Active Problem List Diagnosis Depression Epilepsy (CMS/HCC) Insomnia Migraine TIERNEY (obstructive sleep apnea) Vitamin D deficiency Class 3 severe obesity with body mass index (BMI) of 40.0 to 44.9 in adult ([facility]) Bariatric surgery status Class 1 obesity due to excess calories with serious comorbidity and body mass index (BMI) of 30.0 to 30.9 in adult PAST SURGICAL HISTORY: No past surgical history on file. SOCIAL HISTORY: Social History Tobacco Use Smoking status: Never Smokeless tobacco: Never Substance Use Topics Alcohol use: Never FAMILY HISTORY: Family History Problem Relation Name Age of Onset Diabetes Mother kidney stones, migraines Other (Other: ca cervical) Mother 45.00 spread to ovaries, not sure Alcohol abuse Father in 30s, cause unknown Other (Other: epilepsy) Aunt mother Diabetes Brother asthma Other (Other: ca cervical) Mother's side 42.00 Aunt Prostate cancer Mother's side 60.00 Uncle Family Status Relation Name Status Mother (Not Specified) Father (Not Specified) Aunt (Not Specified) Brother (Not Specified) Mother's marlene (Not Specified) Mother's marlene (Not Specified) No partnership data on file MEDICATIONS: There are no discontinued medications. ACTIVE MEDICATIONS: No outpatient medications have been marked as taking for the 04/28/24 encounter (Office Visit) with JAYLAN Piña. ALLERGIES: No Known Allergies PHYSICAL EXAM: Visit Vitals BP 116/70 Pulse 101 Ht 1.651 m (65 ) Wt 83.4 kg (183 lb 12.8 oz) BMI 30.59 kg/m?? Smoking Status Never BSA 1.91 m?? APPEARANCE: Alert and in no acute distress EYES: Conjunctiva normal and sclera normal and anicteric. LUNG: Chest no retractions. ABDOMEN: Soft, non-tender, without organomegaly or palpable masses. EXTREMITIES: Extremities warm and well perfused without clubbing, cyanosis, or edema. SKIN: Skin color and texture normal. No rashes or lesions. ASSESSMENT: 1. Intestinal malabsorption following gastrectomy 2. Class 1 obesity due to excess calories with serious comorbidity and body mass index (BMI) of 30.0 to 30.9 in adult 3. Bariatric surgery status PLAN: 1. Obesity - Improving Weight loss slowing Patient tolerating a diet without significant nausea or vomiting 2. Intestinal malabsorption following gastrectomy- Abnormal zinc and B6 levels may be related to joint supplement Recommend patient review ingredients and stop should this contain extra levels of zinc and B6 Will recheck levels in 4 weeks Medication and lab orders: Orders Placed This Encounter Procedures Vitamin B6 Zinc Other orders: None cc: Vikram Rivera MD documented in this encounter Plan of Treatment Upcoming Encounters Date Type Department Care Team (Late st Contact Info) Description 05/21/2024 9:00 AM EST Telemedicine Bariatric Surgery - [place] [address] [phone] Liseth Gonzalez, NIKITA [address] [phone] 06/10/2024 11:45 AM EDT Office Visit Bariatric Surgery [facility] [address] [phone] Nenita Danielle PA [address] [address] 06/23/2024 3:45 PM EDT Office Visit Adult Medicine [facility] [address] [place] [phone] Vikram Rivera MD [address] [place] [address] 11/19/2024 3:45 PM EDT Office Visit Pulmonolgy - [place] [address] [phone] Bob Ravi MD [address] [address] Scheduled Orders Name Type Priority Associated Diagnoses Orde r Schedule Vitamin B6 Lab Routine Intestinal malabsorption following gastrectomy 1 Occurrences starting 04/28/2024 until 04/28/2025 Zinc Lab Routine Intestinal malabsorption following gastrectomy 1 Occurrences starting 04/28/2024 until 04/28/2025 documented as of this encounter Visit Diagnoses Diagnosis Intestinal malabsorption following gastrectomy- Primary Class 1 obesity due to excess calories with serious comorbidity and body mass index (BMI) of 30.0 to 30.9 in adult Bariatric surgery status documented in this encounter Care Teams Forest Technician Relationship Specialty Start Date End Date Vikram Rivera MD [address] [place] [phone] PCP - General Internal Medicine 02/07/24 documented as of this encounter
== END 2024-05-20 14:25 | disposition home or self-care (01) ==
PROVIDERS: PCP Internal Medicine; Visit Provider Internal Medicine
DX: G40.909 Epilepsy, unspecified, not intractable, without status epilepticus (principal); F41.8 Other specified anxiety disorders; J30.89 Other allergic rhinitis; R43.2 Parageusia; Z90.3 Acquired absence of stomach [part of]; Z00.01 Encounter for general adult medical examination with abnormal findings

== ENCOUNTER → 2024-05-20 11:56 | Outpatient (BNVA) | payer OTHER, SELFPAY | PROVIDERS: PCP Internal Medicine; Visit Provider Internal Medicine | DX: Z00.01 Encounter for general adult medical examination with abnormal findings (principal); G40.909 Epilepsy, unspecified, not intractable, without status epilepticus; F41.8 Other specified anxiety disorders; J30.89 Other allergic rhinitis; R43.2 Parageusia; Z90.3 Acquired absence of stomach [part of] | CPT/HCPCS: 96127; 99385 ==

== ENCOUNTER 2024-06-06 12:58 | Outpatient (REF) | payer OTHER, SELFPAY ==
[2024-06-06 16:10] LABS: MANUAL DIFF FLAG NO
[2024-06-06 16:33] LABS: Basophils Percent Auto 0.3 % (0-2); Eosinophils Absolute Auto 0.1 X10*3/uL (0.0-0.4); Eosinophils Percent Auto 1.5 % (0-4); Hemoglobin 13.5 g/dl (14.0-18.0); Imm Gran Abs Auto 0.02 X10*3/uL (0.00-0.03); Imm Gran Pct Auto 0.3 % (0.0-0.4); Lymphocytes Absolute Auto 2.2 X10*3/uL (1.2-4.9); Lymphocytes Percent Auto 36.3 % (20-40); Mean Corpuscular HGB Conc 34.6 g/dl (31.0-36.0); Mean Corpuscular Hemoglobin 30.3 pg (27.0-33.0); Mean Corpuscular Volume 87.6 fL (80.0-98.0); Mean Platelet Volume 10.7 fL (9.4-12.4); Monocytes Absolute Auto 0.3 X10*3/uL (0.1-1.2); Monocytes Percent Auto 5.6 % (2-11); Neutrophils Absolute Auto 3.4 x10*3/uL (2.0-8.3); Platelet Count 269 X10*3/uL (160-400); Red Blood Count 4.45 X10*6/uL (4.60-5.80); Red Cell Distribution Width 13.2 % (11.0-16.0); White Blood Count 6.1 X10*3/uL (4.8-10.8)
[2024-06-06 17:12] LABS: Folate 5.3 ng/mL (> or = 4.0); Vitamin B12 316 pg/mL (200-900)
[2024-06-06 17:43] LABS: Alanine Aminotransferase 25 U/L (0-40); Albumin Level 4.5 g/dL (3.5-5.0); Alkaline Phosphatase 76 U/L (39-117); Anion Gap 11 (12-20); Aspartate Amino Transferase 24 U/L (5-37); Bilirubin Total 0.6 mg/dL (0.0-1.0); Blood Urea Nitrogen 11 mg/dL (9-16); Calcium 9.5 mg/dL (8.4-10.2); Carbon Dioxide 24 mmol/L (22-29); Chloride 111 mmol/L (96-108); Cholesterol 185 mg/dL (<200); Estimated Glomerular Filt Rate > 60; Glucose Fasting 91 mg/dL (60-99); HDL Cholesterol 36 mg/dL (>40); LDL Cholesterol Calculated 129 mg/dL (<100); Potassium 3.5 mmol/L (3.3-5.1); Sodium 142 mmol/L (135-145); Total Protein 7.8 g/dL (6.5-8.0); Triglycerides 104 mg/dL (<150)
[2024-06-06 18:02] LABS: TSH reflex Free T4 0.55 uIU/mL (0.32-4.0); Vitamin D 25-OH Total 67.3 ng/mL (>30)
[2024-06-11 12:18] LABS: Vitamin B6 25.8 ng/mL (2.1-21.7)
== END 2024-06-06 12:59 | disposition home or self-care (01) ==
LOC: HO.HMGCLDS 12:58
PROVIDERS: PCP Internal Medicine; Visit Provider Internal Medicine
DX: Z00.01 Encounter for general adult medical examination with abnormal findings (principal); Z90.3 Acquired absence of stomach [part of]; G40.909 Epilepsy, unspecified, not intractable, without status epilepticus; F41.8 Other specified anxiety disorders; R43.2 Parageusia; J30.89 Other allergic rhinitis; Z13.6 Encounter for screening for cardiovascular disorders
CPT/HCPCS: 36415; 80053; 80061; 82306; 82607; 82746; 84207; 84443; 85025

== ENCOUNTER 2024-11-24 08:03 | Outpatient (AMB) | payer OTHER, SELFPAY ==
--- OUTSIDE RECORDS SUMMARY | 2024-11-19 15:45 | XMS_ITS | Encounter Summary ---
Author Organization [facility] Address [address] [place] [address] Care Team Providers Care Inspector Plumbing Name Role Phone Physician, Pcp Unknown Primary Care Provider Eden vailable Reason for Visit * Reason Comments Asthma F/u asthma Encounter Details Date Type Department Care Team ([facility] st Contact Info) Description 11/19/2024 3:45 PM EDT [facility] [address] [phone] Bob Ravi MD [address] [phone] Mild intermittent asthma, unspecified whether complicated (Primary Dx) Social History Tobacco Use Types Packs/Day Years [...] Sign Reading Time Taken Comments Blood Pressure 122/66 11/19/2024 3:45 PM EDT Pulse 67 11/19/2024 3:45 PM EDT Temperature 36.3 C (97.3 F) 11/19/2024 3:45 PM EDT Respiratory Rate 16 11/19/2024 3:45 PM EDT Oxygen Saturation 100% 11/19/2024 3:45 PM EDT Inhaled Oxygen Concentration - - Weight 67.9 kg (149 lb 12.8 oz) 11/19/2024 3:45 PM EDT Height 162.6 cm (5' 4 ) 11/19/2024 3:45 PM EDT Body Mass Index 25.71 11/19/2024 3:45 PM EDT documented in this encounter Progress Notes * Bob Ravi MD - 11/19/2024 3:45 PM EDT ADULT PULMONARY CONSULT CHIEF COMPLAINT or REASON FOR CONSULTATION: Asthma (F/u asthma) HISTORY OF PRESENT ILLNESS: Rita Barlow is a 29 y.o. years old, male with a history of TIERNEY and asthma. Not on any therapy for the TIERNEY. He had a positive metacholine test in 2019. On Arnuity and prn albuterol. HE does not use thearnuity on a regular bases. He has no other major issues. I last saw him 12 mths ago. HE lost over 80 lbs since gastric bypass surgery. The wt gain has improve his asthma- he has bodyaches and some right flank pain since the surgery. ALLERGIES: Allergies Allergen Reactions Flavoring Agent (Bulk) Per Pt. on 06/12/2018 he can not eat grapefruit due to his current medications. ACTIVE MEDICATIONS: Outpatient Medications Marked as Taking for the 11/19/24 encounter (Office Visit) with Bob Ravi MD Medication Sig Dispense Refill albuterol HFA (PROAIR HFA ; PROVENTIL HFA ; VENTOLIN HFA) 90 mcg/actuation inhaler INHALE 2 PUFFS BY MOUTH INTO THE LUNGS EVERY 4 HOURS NEEDED FOR COUGH OR WHEEZING (BULK) 8.5 g 1 cholecalciferol (VITAMIN D-3) 1,250 mcg (50,000 unit) capsule TAKE 1 CAPSULE BY MOUTH ONE TIME PER WEEK cholecalciferol (VITAMIN D-3) 50 mcg (2,000 unit) tablet Take 1 Tablet by mouth daily. escitalopram (LEXAPRO) 20 mg tablet fluticasone furoate (Arnuity Ellipta) 100 mcg/actuation blister with device inhaler INHALE ONE PUFFBY MOUTH EVERY DAY - RINSE MOUTH WITH WATER AND EXPECTORATE AFTER EACH DOSE TO PREVENT ORAL/ESOPHAGEAL CANDIDIASIS OR FUNGAL INFECTION. (BULK) fluticasone HFA (FLOVENT HFA) 110 mcg/actuation inhaler INHALE TWO PUFFS BY MOUTH TWICE A DAY (BULK) 12 g 10 hydrOXYzine HCL (ATARAX) 50 mg tablet inhalat.spacing dev,large mask (Procare Spacer With Adult Mask) spacer Use with albuterol inhaler lamoTRIgine (LaMICtal XR) 300 mg tablet extended release 24hr 24 hr tablet Take 300 mg by mouth 2 times daily. lamoTRIgine (LaMICtal) 200 mg tablet Take 1 tablet by mouth 2 Times Daily. loratadine (CLARITIN) 10 mg tablet TAKE ONE TABLET BY MOUTH EVERY DAY ^1R1 30 tablet 2 sertraline (ZOLOFT) 100 mg tablet Take 100 mg by mouth 2 times daily. topiramate (TOPAMAX) 100 mg tablet TAKE 1 TABLET EVERY MORNING AND 1.5 TABLET (150MG) EVERY EVENING wheat dextrin 3 gram/3.8 gram powder Take 4 g by mouth daily. PROVIDER ATTESTS THAT THE MEDICATION LIST WAS OBTAINED, REVIEWED AND UPDATED. REVIEW OF SYSTEMS: GENERAL: + wt lostENT: +snoring Eye: RESPIRATORY: + cough, wheezing and dyspnea CARDIOVASCULAR: No chest pain, leg swelling or palpitations GI: No abdominal discomfort, MUSCULOSKELETAL: +backpain HEMATOLOGY/LYMPHOLOGY No prolonged bleeding, easy bruisability ENDOCRINE: no DM NEURO: No focal weakness : Psych: no depression PAST MEDICAL HISTORY: Patient Active Problem List Diagnosis Date Noted Depression, major, recurrent, mild ([facility] V24) 09/16/2024 Hypersomnia with sleep apnea 09/16/2024 Psychogenic nonepileptic seizure 09/16/2024 Syncope and collapse 09/16/2024 Intractable localization-related epilepsy ([facility] V24, [facility] V28) 09/16/2024 Bariatric surgery status 04/15/2024 Class 1 obesity due to excess calories with serious comorbidity and body mass index (BMI) of 30.0 to 30.9 in adult 04/15/2024 Class 3 severe obesity with body mass index (BMI) of 40.0 to 44.9 in adult ([facility] V24, [facility] V28) 01/01/2024 TIERNEY (obstructive sleep apnea) 09/10/2015 Depression 07/28/2013 Epilepsy ([facility] V24, [facility] V28) 12/24/2012 Insomnia 12/24/2012 Migraine 12/24/2012 Vitamin D deficiency 12/24/2012 Anxiety 10/20/2010 No past surgical history on file. FAMILY HISTORY: Family History Problem Relation Name Age of Onset Diabetes Mother kidney stones, migraines Other (Other: ca cervical) Mother 45.00 spread to ovaries, not sure Alcohol abuse Father in 30s, cause unknown Other (Other: epilepsy) Aunt mother Diabetes Brother asthma Other (Other: ca cervical) Mother's side 42.00 Aunt Prostate cancer Mother's side 60.00 Uncle OCCUPATION OR OCCUPATION EXPOSURE: SOCIAL HISTORY Social History Socioeconomic History Marital status: Single Spouse name: Not on file Number of children: Not on file Years of education: Not on file Highest education level: Not on file Occupational History Not on file Tobacco Use Smoking status: Never Smokeless tobacco: Never Substance and Sexual Activity Alcohol use: Never Drug use: Never Sexual activity: Not on file Other Topics Concern Not on file Social History Narrative Not on file IMMUNIZATION: Immunization History Administered Date(s) Administered Hepatitis B (Kwddhja-H-Vmcap, Recombivax HB-Adult) 19yo and older 10/27/2021 Influenza Quadravalent, MDCK, 0.5ml, preservative free (Flucelvax) 6mo and older 11/23/2022 Influenza trivalent, 0.5mL, preservative free (Fluarix; FluLaval; Fluzone) ages 6mo and older (Afluria) 3 years and older 05/04/2016, 12/15/2018 Gudeng Precision SARS-CoV-2 COVID-19, mRNA, LNP-S, preservative free 07/10/2020, 07/31/2020, 03/01/2021 Tdap Tetanus diptheria acellular pertussis (Boostrix; Adacel) 7yo and older 10/30/2013 PHYSICAL EXAM: Visit Vitals BP 122/66 (BP Location: Left arm, Patient Position: Sitting, BP Cuff Size: Adult) Pulse 67 Temp 36.3 ??C (97.3 ??F) (Temporal) Resp 16 Ht 1.626 m (64 ) Wt 67.9 kg (149 lb 12.8 oz) SpO2 100% BMI 25.71 kg/m?? Smoking Status Never BSA 1.73 m?? APPEARANCE: Alert and in no acute distress. EYES: Conjunctiva and sclera normal. NOSE/SINUS: Nares normal. Septum midline. Mucosa No drainage or sinus tenderness. MOUTH/THROAT: no erythema or exudates. Mallampati class 2 NECK: Neck supple, thyroid symmetric and of normal size. HEART: RRR with normal S1 and S2, no murmurs, no gallops, no JVD appreciated. LUNG: CTA b/l, no wheezing or bronchial bs ABDOMEN: Bowel sounds normoactive, soft, non-tender EXTREMITIES: no clubbing, cyanosis, or edema. LYMPH NODES: No cervical and supra-clavicular lymphadenopathy. NEURO: Awake, alert and oriented x 3, no focalization Derm: no rash DIAGNOSTIC DATA: sleep study AHI 9/hr lowest sat 87% 2017 CARDIOPULMONARY TEST: Last Pulmonary function Test showed: Pulmonary Function Test Name: RITA BARLOW Admit Date: 06/14/18 - [age]yr Discharge Date: Location: [facility] - Report #: [id number] Dictating Physician: Héctor WOMACK MD DATE OF SERVICE: 06/14/2018 This patient had a broncho challenge test. At the baseline, the FVC was 4.59 and at the level V, it was 3.87. There is a decrease of 16% and the actual FEV1 was 3.8 the baseline and 3.02 at level 5 and the flow rates also markedly decreased from 4.21 to 2.77 and after the bronchodilators, they are all reversed to baseline. IMPRESSION: Consistent with reactive airway disease. RADIOLOGIST IMAGIN12/25/23 - 113 Report Status:Signed HISTORY: The patient is a 28-year-old male with morbid obesity, undergoing evaluation prior to bariatric surgery. FINDINGS: PA and lateral radiographs of the chest, without previous for comparison, demonstrate limited depth of inspiration. The bony structures are of normal appearance. The cardiac and mediastinal contours are within normal limits. The lungs and costophrenic angles are clear. IMPRESSION: Limited depth of inspiration. Otherwise, normal examination. ASSESSMENT: ICD-10-CM ICD-9-CM 1. Mild intermittent asthma, unspecified whether complicated J45.20 493.90 XR Chest 2 Views PLAN: Patient has mild intermittent asthma, he still uses Flovent but on a as needed basis. His last PFT was normal. He rarely needs as needed albuterol, his symptoms a lot better since the weight loss. I will get a chest x-ray for nonspecific back/rib pain he can come back in 12 months - Follow up with Pcp Unknown Physician for the other co-morbilities. - I spend 21 Minutes on this visit. The patient was educated about his problems, where assessment and plan was reviewed and explained, All questions were answered. This includes: Preparing to see the patient, obtaining and/or reviewing separately obtained history, performing a medically appropriate exam, ordering medications, tests, or procedures, documenting clinical information in the electronic health record, and independently interpreting results. RETURN TO THE NEXT VISIT: Based on physical exam, symptomatology, tests requested and baseline pulmonary evaluation/disease, I instructed the patient to come back to see me in 12 mths for reevaluation after the test has been done or earlier if the patient needed. Thanks Pcp Unknown Physician for allowing me to have the opportunity to assist in the care of this patient. documented in this encounter Plan of Treatment Upcoming Encounters Date Type Department Care Team (Late st Contact Info) Description 01/19/2025 11:00 AM EST Office Visit Bariatric Surgery - [place] 175 [facility] [address] [place] [phone] Nenita Danielle PA [address] [place] [phone] 11/20/2025 3:45 PM EDT Office Visit Pulmonolgy - [place] 175 [facility] [address] [place] [phone] Bob Ravi MD 175 [facility] [address] [place] [address] Scheduled Orders Name Type Priority Associated Diagnoses Orde r Schedule XR Chest 2 Views Imaging Routine Mild intermittent asthma, unspecified whether complicated Expected: 11/19/2024, Expires: 11/19/2025 documented as of this encounter Visit Diagnoses Diagnosis Mild intermittent asthma, unspecified whether complicated- Primary documented in this encounter Care Teams Inspector Plumbing Relationship Specialty Start Date End Date Physician, Pcp Unknown PCP - General 09/23/24 documented as of this encounter
--- NOTE | 2024-11-24 08:09 | A.OFFPC_ITS ---
Vital Signs 11/24/24 08:10 Height 5 ft 4 in Weight 151 lb BMI 25.9 BP 90/60 Blood Pressure Location Rt brachial Respiration 16 Pulse 68 Pulse Source Pulse Oximeter Temp 98.1 F Temp Source Oral Pulse Oximetry (%) 98 Oxygen Delivery Method Room Air Intake Visit Reasons: Ear problem Intake Note: Pt is here today c/o Lt ear problem with veritgo Allergies ursodiol Adverse Reaction (Severe, Uncoded 11/24/24 08:22) Confusion Medication List - Last Reconciled 11/24/24 by Sheridan Patel MD acetaminophen (Pain Relief Extra Strength (acetaminophen)) mg PO escitalopram oxalate 10 mg PO DAILY fluticasone propionate 110 mcg/actuation inhalation lamotrigine 100 mg PO BID lamotrigine 200 mg PO BID loratadine 10 mg PO DAILY pantoprazole 40 mg PO DAILY topiramate 50 mg PO DAILY topiramate 100 mg PO BID Tobacco use date assessed: 11/24/24 Dental Screening Dental Screen Date: 05/20/24 HPI Ear problem HPI Details - The patient is a 29-year-old male pres enting with dizziness, hearing loss, and elevated Vitamin B6 levels. - Reports persistent dizziness, hearing loss primarily affects the left ear, with no wax or eardrum abnormalities noted during examination. - Underwent gastroesophageal sleeve surg krista in December of the previous year, resulting in significant weight loss from 220 pounds to 151 pounds. Patient states blood pressure also dropped drastically after surgery - reason labs done 05/2024 showed presen ce of mild anemia, with normal electrolytes, kidney function, and liver enzymes. [facility] Medical History (Updated 11/30/24 @ 01:43 by Sheridan Patel MD) Hearing loss of left ear Dysgeusia Environmental and seasonal allergies Depression with anxiety Seizure disorder Mental health disorder Substance abuse Surgical History H/O gastric sleeve Family History Mother Mental health disorder Father Mental health disorder Social History Housing: House Patient Tobacco Use Status: Never used Tobacco e-Cigarette/Vaping Use: Never Used service: No Current occupational status: unemployed Cognitive needs: No Hearing needs: No Vision needs: Yes Questionnaire Thrive Questionnaire Date Thrive assessed: 05/20/24 I am a: Patient What is your living situation today?: I have a steady place to live Within the past 12 months, did the food you bought not last and you didn't have the money to get more?: Sometimes True Within the past 12 months, did you worry whether your food would run out before you got money to buy more?: Sometimes True Do you have trouble paying for medicines?: I choose not to answer this question Do you have trouble getting transportation to medical appointments?: I choose not to answer this question Do you have trouble paying your heating and electricity bill?: No Do you have trouble taking care of your child, family member or friend?: I choose not to answer this question Do you have trouble with day-to-day activities such as bathing, preparing meals, shopping, managing finances, etc.?: I choose not to answer this question Are you currently unemployed and looking for a job?: I choose not to answer this question Are you interested in more education?: I choose not to answer this question Please select the resources that you would like help with: None Currently or been in a relationship where the following occur: I choose not to answer THRIVE Score: 2 MARIA ISABEL-7 AMB Questionnaire MARIA ISABEL-7 Date MARIA ISABEL - 7 assessed: 05/20/24 Source: Developed by Drs. Lester Cullen, Julianne Tarango, Lázaro Benedict and colleagues, with an educational delonte from [employer]. Review of Systems Const Denies body aches, Denies fatigue, Denies fever(s) and Denies headache(s) Eyes Details: sees eye doctor at [facility] Denies change in vision ENT Details: Failed whisper test Denies headache(s), Denies nasal congestion and Denies nasal discharge Card Denies chest pain, Denies palpitations and Denies dyspnea Resp Denies chest congestion, Denies cough, Denies dyspnea and Denies wheezing GI Denies abdominal pain, Denies change in bowel habits and Denies heartburn Denies hematuria, Denies difficulty urinating, Denies dysuria, Denies urinary frequency and Denies urinary urgency Musc Reports no additional complaints Skin/Breast Denies lesions and Denies rash Neuro Denies headache(s) Endo Denies fatigue, Denies polydipsia, Denies polyuria and Denies palpitations Chance/Lymph Denies easy bruising Aller/Immun Denies seasonal rhinorrhea and Denies wheezing Physical exam (Primary Care) Vital Signs: Last Vital Signs Temp 98.1 F 11/24/24 08:10 Pulse 68 11/24/24 08:10 Resp 16 11/24/24 08:10 BP 90/60 11/24/24 08:10 Pulse Ox 98 11/24/24 08:10 Oxygen Delivery Method Room Air 11/24/24 08:10 BMI result Body Mass Index 25.9 Tobacco/Smoking Status: Tobacco use Status Tobacco use date assessed 11/24/24 11/24/24 08:11 Patient Tobacco Use Status Never used Tobacco 11/24/24 08:11 e-Cigarette/Vaping Use Never Used 11/24/24 08:11 Thrive Assessment: Date of Thrive Assessment Date Thrive assessed 05/20/24 11/24/24 08:11 Currently or been in a relationship where the following occur: I choose not to answer Const General: no acute distress and alert Nutritional Appearance: overweight Orientation/consciousness: patient oriented x3 HENMT Head: Yes normocephalic Ears: external ears normal, TM's normal bilaterally and EAC's normal General nose exam: Normal external nose present Face and sinus: Yes face symmetric Mouth: Normal oral and palatal mucosa present and moist mucous membranes Eyes General: appearance normal, both eyes and all related structures Conjunctivae: conjunctivae normal Sclerae: sclerae normal Neck Neck: Yes full ROM, Yes no lymphadenopathy and Yes supple Thyroid: Thyroid normal Resp Effort & Inspection: normal respiratory effort and able to speak in complete sentences Auscultation: clear to auscultation bilaterally Cardio Rate: regular rate Rhythm: regular rhythm Heart sounds: S1 normal heart sound present and S2 normal heart sound present GI Palpation (GI): Soft to palpation, nontender, no guarding and no masses Auscultation: normal bowel sounds Skin General skin exam: no rashes or lesions noted Neuro General: patient oriented x3, gait normal, moves all extremities and no focal motor deficits Cognition (Neuro): normal cognition Gait exam (Neuro): Normal gait present Extrem General: Yes normal to inspection, Yes full ROM, Yes no joint enlargement, Yes no pedal edema and Yes normal gait Psych Appearance: grossly normal Affect: normal affect Coding Level of Care Code Est Pt Level 4 (78719) Diagnoses Hearing loss of left ear, unspecified hearing loss type H91.92 Hearing loss type: unspecified Assessment & Plan Assessment & Plan (1) Hearing loss of left ear: Code(s): H91.92 - Unspecified hearing loss, left ear Category: Medical Qualifiers: Hearing loss type: unspecified Qualified Code(s): H91.92 - Unspecified hearing loss, left ear Plan: Exam of both ears showed unremarkable findings. Intact tympanic membrane no cerumen found. Referred to speech and hearing for evaluation of hearing Orders: Referrals Speech and Hearing Referral H91.92 - Unspecified hearing loss, left ear
[2024-11-24 08:10] VITALS: BP 90/60; PULSE 68; RESP 16; TEMP 36.7; O2SAT 98; BMI 25.9
--- OUTSIDE RECORDS SUMMARY | 2024-11-24 08:35 | XMS_ITS | Clinical Summary ---
Author Organization [address] [place] [address] [address] [place] [address] Phone Care Team Providers Care Ramp Supervisor Name Role Phone Physician, Pcp Unknown Primary Care Provider Eden vailable Allergies Active Allergy Reactions Criticality Noted Date Comments Flavoring Agent (Bulk) 09/16/2024 Per Pt. on 06/12/2018 he can not eat grapefruit due to his current medications. Medications fluticasone furoate (Arnuity Ellipta) 100 mcg/actuation blister with device inhaler INHALE ONE PUFF BY MOUTH EVERY DAY - RINSE MOUTH WITH WATER AND EXPECTORATE AFTER EACH DOSE TO PREVENT ORAL/ESOPHAGEAL CANDIDIASIS OR FUNGAL INFECTION. (BULK) 4 Active cholecalciferol (VITAMIN D-3) 50 mcg (2,000 unit) tablet Take 1 Tablet by mouth daily. 4 Active cholecalciferol (VITAMIN D-3) 1,250 mcg (50,000 unit) capsule TAKE 1 CAPSULE BY MOUTH ONE TIME PER WEEK 4 Active escitalopram (LEXAPRO) 20 mg tablet 3 Active hydrOXYzine HCL (ATARAX) 50 mg tablet 3 Active lamoTRIgine (LaMICtal) 200 mg tablet Take 1 tablet by mouth 2 Times Daily. 2 Active lamoTRIgine (LaMICtal XR) 300 mg tablet extended release 24hr 24 hr tablet Take 300 mg by mouth 2 times daily. 1 Active sertraline (ZOLOFT) 100 mg tablet Take 100 mg by mouth 2 times daily. Active topiramate (TOPAMAX) 100 mg tablet TAKE 1 TABLET EVERY MORNING AND 1.5 TABLET (150MG) EVERY EVENING 9 Active inhalat.spacing dev,large mask (Procare Spacer With Adult Mask) spacer Use with albuterol inhaler 8 Active wheat dextrin 3 gram/3.8 gram powder Take 4 g by mouth daily. 4 Active fluticasone HFA (FLOVENT HFA) 110 mcg/actuation inhaler INHALE TWO PUFFS BY MOUTH TWICE A DAY (BULK) 12 g 10 5 Active loratadine (CLARITIN) 10 mg tablet TAKE ONE TABLET BY MOUTH EVERY DAY ^1R1 30 tablet 2 5 Active albuterol HFA (PROAIR HFA ; PROVENTIL HFA ; VENTOLIN HFA) 90 mcg/actuation inhaler INHALE 2 PUFFS BY MOUTH INTO THE LUNGS EVERY 4 HOURS NEEDED FOR COUGH OR WHEEZING (BULK) 8.5 g 1 5 Active Active Problems Problem Noted Date Diagnosed Date Depression, major, recurrent, mild ([facility] [place]24) 09/16/2024 Hypersomnia with sleep apnea 09/16/2024 Psychogenic nonepileptic seizure 09/16/2024 Syncope and collapse 09/16/2024 Intractable localization-rel ated epilepsy ([facility] [place]24, [facility] V28) 09/16/2024 Bariatric surgery status 04/15/2024 Class 1 obesity due to exces s calories with serious comorbidity and body mass index (BMI) of 30.0 to 30.9 in adult 04/15/2024 Class 3 severe obesity with body mass index (BMI) of 40.0 to 44.9 in adult ([facility] [place]24, [facility] V28) 01/01/2024 TIERNEY (obstructive sleep apnea) 09/10/2015 Depression 07/28/2013 Epilepsy ([facility] [place]24, [facility] V28) 12/24/2012 Overview (01/01/2024): Started age 10, states after his father , seizures started ? Emotional Patient states he is in the process of having the surgery for the seizures to remove part of the brain that causes the seizures . Insomnia 12/24/2012 Migraine 12/24/2012 Vitamin D deficiency 12/24/2012 Anxiety 10/20/2010 Encounters Date Type Department Care Team Description 11/19/2024 3:45 PM EDT Office Visit Pulmonolgy - [place] [address] [place] [phone] Bob Ravi MD Mild intermittent asthma, unspecified whether complicated (Primary Dx) 09/16/2024 2:00 PM EDT Office Visit Bariatric Surgery - [place] [address] [place] [phone] Nenita Danielle PA Overweight (BMI 25.0-29.9) (Primary Dx); Bariatric surgery status from Last 3 Months Immunizations Name Administration Dates Next Due Hepatitis B (Cwdmybs-R-Xfcdy , Recombivax HB-Adult) 19yo and older 10/27/2021 Influenza Quadravalent, MDCK , 0.5ml, preservative free (Flucelvax) 6mo and older 11/23/2022 Influenza trivalent, 0.5mL, preservative free (Fluarix; FluLaval; Fluzone) ages 6mo and older (Afluria) 3 years and older 12/15/2018,05/04/2016 Tdap Tetanus diptheria acell ular pertussis (Boostrix; Adacel) 7yo and older 10/30/2013 Medical History Medical History Date Comments Epilepsy ([facility] V24, [facility] V28) 12/24/2012 DX:Epilepsy ([facility]); COMMENT: Started age 10, states after his [...] Mass Index 25.71 11/19/2024 3:45 PM EDT Plan of Treatment Upcoming Encounters Date Type Department Care Team (Late st Contact Info) Description 01/19/2025 11:00 AM EST Office Visit Bariatric Surgery - [place] [address] [facility] [address] [place] [phone] Nenita Danielle PA [address] [place] [phone] 11/20/2025 3:45 PM EDT Office Visit Pulmonolgy - [place] [address] [facility] [address] [place] [phone] Bob Ravi MD [address] [facility] [address] [place] [address] Health Maintenance Due Date Last Done Comments Pneumococcal Vaccine: Pediatrics (0 to 5 Years) and At-Risk Patients (6 to 49 Years) (1 of 2 - PCV) 01/10/2012 Hepatitis B Vaccines (2 of 3 - 19+ 3-dose series) 11/24/2021 10/27/2021 HIV Screening 02/25/2022 Hepatitis C Screening 02/25/2022 Medicare Annual Wellness Visit 02/25/2022 Social Influencers of Health Screening 02/25/2022 DTaP,Tdap,and Td Vaccines (2 - Td or Tdap) 10/31/2023 10/30/2013 Depression Screening 03/19/2024 COVID-19 Vaccine (4 - season) 2024 03/01/2021, 07/31/2020, 07/10/2020 Influenza Vaccine (#1) 2024 , 12/04/2019, 12/15/2018, Additional history exists Cholesterol [...] age to complete this topic Meningococcal B Vaccine Aged Out No l onger eligible based on patient's age to complete this topic RSV Immunization Patients Under 20 months Aged Out No longer eligible based on patient's age to complete this topic Varicella Vaccines Aged Out No longer eligible based on patient's age to complete this topic Procedures Procedure Name Priority Date/Time Associated Diagnosis Comments FOLATE Routine 09/23/2024 1:15 PM EDT Overweight (BMI 25.0-29.9) IRON AND TIBC Routine 09/23/2024 1:15 PM EDT Overweight (BMI 25.0-29.9) COMPREHENSIVE METABOLIC PANEL Routine 09/23/2024 1:15 PM EDT Overweight (BMI 25.0-29.9) ZINC Routine 09/23/2024 1:15 PM EDT Overweight (BMI 25.0-29.9) VITAMIN D 25 HYDROXY Routine 09/23/2024 1:15 PM EDT Overweight (BMI 25.0-29.9) VITAMIN B6 Routine 09/23/2024 1:15 PM EDT Overweight (BMI 25.0-29.9) VITAMIN B12 Routine 09/23/2024 1:15 PM EDT Overweight (BMI 25.0-29.9) VITAMIN B1 Routine 09/23/2024 1:15 PM EDT Overweight (BMI 25.0-29.9) SELENIUM SERUM Routine 09/23/2024 1:15 PM EDT Overweight (BMI 25.0-29.9) LIPID PANEL Routine 11/27/2023 from Last 3 Months or Most Recently Relevant to Health Maintenance Results * Iron and TIBC (09/23/2024 1:15 PM EDT) Iron 110 50 - 160 mcg/dL LAB CHEMISTRY METHOD 09/23/2024 9:31 PM EDT [facility] TIBC 272 250 - 450 mcg/dL LAB CHEMISTRY METHOD 09/23/2024 9:31 PM EDT [facility] Iron Saturation 40 20 - 50 % LAB CHEMISTRY METHOD 09/23/2024 9:31 PM EDT [facility] Blood Venous blood specimen / Unknown Venipuncture / Unknown 09/23/2024 1:15 PM EDT 09/23/2024 1:15 PM EDT us Nenita TIAN LAB BLOOD ORDERABLES Final R esult [facility] [address] [place] [address], * Zinc (09/23/2024 1:15 PM EDT) Zinc 95 60 - 130 ug/dL 09/26/2024 11:38 AM EDT [facility] Comment: Elevated results may be due to sample collected in a non-certified trace element-free tube. This test was developed and the performance characteristics determined by [facility]. It has not been cleared or approved by the FDA. The laboratory is regulated under CLIA as qualified to perform high-complexity testing. This test is used for patient testing purposes. It should not be regarded as investigational or for research. Test performed at [facility], [address] , [place] [address] Lucille Oliveros MD, PhD - Bucket Operator Blood Venous blood specimen / Unknown Venipuncture / Unknown 09/23/2024 1:15 PM EDT 09/23/2024 1:15 PM EDT Nenita TIAN LAB BLOOD ORDERABLES Final R esult [facility] [address] [place] [address] * Selenium serum (09/23/2024 1:15 PM EDT) Selenium 146 63 - 160 mcg/L 09/28/2024 8:09 PM EDT [facility] Comment: This test was developed and its analytical performance characteristics have been determined by [facility] [place], [place]. It has not been cleared or approved by the U.S. Food and Drug Administration. This assay has been validated pursuant to the CLIA regulations and is used for clinical purposes. Test Performed by Bennett Chambers, [facility], [address] [place] [address] Thomas Webster M.D., Ph.D., Director of Laboratories , CLIA [id number] Blood Venous blood specimen / Unknown Venipuncture / Unknown 09/23/2024 1:15 PM EDT 09/23/2024 1:15 PM EDT Nenita TIAN LAB BLOOD ORDERABLES Final R esult [facility] [address] [place] [address] * Vitamin D 25 hydroxy (09/23/2024 1:15 PM EDT) [facility] Vit D, 25-Hydroxy 53.1 30.0 - 80.0 ng/mL LAB CHEMISTRY METHOD 09/23/2024 11:09 PM EDT [facility] Blood Venous blood specimen / Unknown Venipuncture / Unknown 09/23/2024 1:15 PM EDT 09/23/2024 1:15 PM EDT Nenita TIAN LAB BLOOD ORDERABLES Final R esult [facility] [address] [place] [address], [place] [phone] * Vitamin B1 (09/23/2024 1:15 PM EDT) [facility] Vitamin B1 Whole Blood 63 38 - 122 ug/L 09/30/2024 7:48 AM EDT [facility] Comment: This test was developed and the performance characteristics determined by [facility]. It has not been cleared or approved by the FDA. The laboratory is regulated under CLIA as qualified to perform high-complexity testing. This test is used for patient testing purposes. It should not be regarded as investigational or for research. Test performed at [facility], [address], [place] [address] Lucille Oliveros MD, PhD - Bucket Operator Blood Venous blood specimen / Unknown Venipuncture / Unknown 09/23/2024 1:15 PM EDT 09/23/2024 1:15 PM EDT Nenita TIAN LAB BLOOD ORDERABLES Final R esult [facility] [address] [place] [address] * (ABNORMAL) Vitamin B6 (09/23/2024 1:15 PM EDT) Pathologist [facility] Vitamin B6 (Pyridoxine) Level 142(H) 5 - 50 ug/L 09/29/2024 9:47 AM EDT [facility] Comment: This test was developed and the performance characteristics determined by [facility]. It has not been cleared or approved by the FDA. The laboratory is regulated under CLIA as qualified to perform high-complexity testing. This test is used for patient testing purposes. It should not be regarded as investigational or for research. Test performed at [facility], [address] [facility], [place] [address] Lucille Oliveros MD, PhD - Bucket Operator Blood Venous blood specimen / Unknown Venipuncture / Unknown 09/23/2024 1:15 PM EDT 09/23/2024 1:15 PM EDT Nenita TIAN LAB BLOOD ORDERABLES Final R esult Performing Organization Address [facility]/ZIP Co de Phone Number [facility] [address] [place] [address] * Folate (09/23/2024 1:15 PM EDT) [facility] Folate 12.9 2.8 - 17.0 ng/ml LAB CHEMISTRY METHOD 09/23/2024 9:52 PM EDT [facility] Blood Venous blood specimen / Unknown Venipuncture / Unknown 09/23/2024 1:15 PM EDT 09/23/2024 1:15 PM EDT Nenita TIAN LAB BLOOD ORDERABLES Final R esult [facility] [address] [place] [address], [place] [phone] * Vitamin B12 (09/23/2024 1:15 PM EDT) [facility] Vitamin B-12 405 250 - 900 pcg/mL LAB CHEMISTRY METHOD 09/23/2024 9:52 PM EDT [facility] Blood Venous blood specimen / Unknown Venipuncture / Unknown 09/23/2024 1:15 PM EDT 09/23/2024 1:15 PM EDT Nenita TIAN LAB BLOOD ORDERABLES Final R esult [facility] [address] [place] [address], [place] [phone] * (ABNORMAL) Comprehensive metabolic panel (09/23/2024 1:15 PM EDT) [facility] Sodium 142 133 - 145 mmol/L LAB CHEMISTRY METHOD 09/23/2024 9:52 PM [facility] Potassium 3.7 3.5 - 5.5 mmol/L LAB CHEMISTRY METHOD 09/23/2024 9:52 PM [facility] Chloride 112(H) 96 - 110 mmol/L LAB CHEMISTRY METHOD 09/23/2024 9:52 PM [facility] CO2 25 21 - 32 mmol/L LAB CHEMISTRY METHOD 09/23/2024 9:52 PM [facility] Anion Gap 5 3 - 11 LAB CHEMISTRY METHOD 09/23/2024 9:52 PM [facility] Glucose 90 70 - 100 mg/dL LAB CHEMISTRY METHOD 09/23/2024 9:52 PM [facility] BUN 10 5 - 25 mg/dL LAB CHEMISTRY METHOD 09/23/2024 9:52 PM [facility] Creatinine 0.92 0.70 - 1.30 mg/dL LAB CHEMISTRY METHOD 09/23/2024 9:52 PM T [facility] eGFR 114 >=60 mL/min/1. 73m2 LAB CHEMISTRY METHOD 09/23/2024 9:52 PM [facility] Comment:Calculation based on the Chronic Kidney Disease Epidemiology Collaboration (CKD-EPI) equation refit without adjustment for race. BUN/Creatinine Ratio 10.9 LAB CHEMISTRY METHOD 09/23/2024 9:52 PM [facility] Calcium 9.3 8.5 - 10.5 mg/dL LAB CHEMISTRY METHOD 09/23/2024 9:52 PM [facility] AST (SGOT) 12 10 - 42 unit/L LAB CHEMISTRY METHOD 09/23/2024 9:52 PM [facility] ALT (SGPT) 27 10 - 60 unit/L LAB CHEMISTRY METHOD 09/23/2024 9:52 PM [facility] Alkaline Phosphatase 79 42 - 121 unit/L LAB CHEMISTRY METHOD 09/23/2024 9:52 PM [facility] Total Protein 7.2 6.0 - 8.0 g/dL LAB CHEMISTRY METHOD 09/23/2024 9:52 PM [facility] Albumin 4.1 3.2 - 5.0 g/dL LAB CHEMISTRY METHOD 09/23/2024 9:52 PM [facility] Total Bilirubin 0.5 0.0 - 1.4 mg/dL LAB CHEMISTRY METHOD 09/23/2024 9:52 PM [facility] Blood Venous blood specimen / Unknown Venipuncture / Unknown 09/23/2024 1:15 PM EDT 09/23/2024 1:15 PM EDT us Nenita TIAN LAB BLOOD ORDERABLES Final R esult [facility] [address] [place] [address], [place] [phone] * (ABNORMAL) Lipid panel (11/27/2023) LDL/HDL Ratio 6(A) 0 - 4 Triglycerides 260(A) 0 - 150 mg/dL Cholesterol 204(A) 0 - 200 mg/dL HDL 34(A) >=40 mg/dL LDL Cholesterol 118(A) 0 - 100 mg/dL Blood Venous blood specimen / Unknown Historical Provider LAB BLOOD ORDERABLES Becca l Result from Last 3 Months or Most Recently Relevant to Health Maintenance Insurance [employer] Member Subscriber Plan / Payer (Ef fective 2017-Present) Name:RITA BARLOW Relation to Subscriber:Self Name:Rita Barlow Payer ID:[id number] Group ID:[id number] Type:Not on file Address: [address] [phone] Care Teams Ramp Supervisor Relationship Specialty Start Date End Date Physician, Pcp Unknown PCP - General 09/23/24
== END 2024-11-24 08:54 | disposition home or self-care (01) ==
LOC: HO.HMCC 08:04
PROVIDERS: PCP Internal Medicine; Visit Provider Internal Medicine
DX: H91.92 Unspecified hearing loss, left ear (principal)

== ENCOUNTER → 2024-11-24 08:03 | Outpatient (BNVA) | payer OTHER, SELFPAY | PROVIDERS: PCP Internal Medicine; Visit Provider Internal Medicine | DX: R42 Dizziness and giddiness (principal); H91.92 Unspecified hearing loss, left ear | CPT/HCPCS: 99212 ==